=== PATIENT | male | born 1995 | race Caucasian/White ===

== ENCOUNTER 2016-07-02 19:53 | Emergency (ER) | payer OTHER ==
[2016-07-02] MEDS ORDERED: NS 0.9% 1000 ML* 1,000 ML IV ONE (22:37)
--- NOTE | 2016-07-02 22:54 | ED ---
Martín Lal Billy, scribed for Jim Vivar MD on 07/02/16 at 2236 . GI/ HPI - HPI Summary HPI Summary: Patient is a 21 year-old male coming to [facility] with a complaint of decreased appetite for the last 3 days. He decided to come to the ED today after he had 2x episodes of N/V, started at 1400 today. He also reports feeling generally weak. Nothing has made his symptoms better or worse. He states that there is no known reason for his loss of appetite. - History of Current Complaint Chief Complaint: EDHeadache Time Seen by Provider: 07/02/16 22:33 Stated Complaint: VOMITING/HEADACHE Hx Obtained From: Patient Onset/Duration: Started Days Ago, Still Present Timing: Constant Severity: Moderate Current Severity: Moderate Associated Signs and Symptoms: Positive: Weakness, Nausea, Vomiting Aggravating Factor(s): Nothing Alleviating Factor(s): Nothing - Allergy/Home Medications Allergies/Adverse Reactions: Allergies Allergy/AdvReac Type Severity Reaction Status Date / Time No Known Allergies Allergy Verified 08/04/14 19:42 PMH/Surg Hx/FS Hx/Imm Hx Endocrine/Hematology History: Denies: Hx Diabetes Cardiovascular History: Denies: Hx Hypertension Respiratory History: Denies: Hx Asthma Infectious Disease History: No Infectious Disease History: Denies: Traveled Outside the [place] in Last 30 Days - Family History Known Family History: Negative: Cardiac Disease, Hypertension, Diabetes - Social History Alcohol Use: None Substance Use Type: Reports: None Smoking Status (MU): Never Smoked Tobacco Review of Systems Positive: Vomiting, Nausea, Other - loss of appetite Positive: Weakness All Other Systems Reviewed And Are Negative: Yes Physical Exam Triage Information Reviewed: Yes Vital Signs On Initial Exam: Initial Vitals Temp Pulse Resp BP Pulse Ox 97.6 F 104 16 116/70 100 07/02/16 19:55 07/02/16 19:55 07/02/16 19:55 07/02/16 19:55 07/02/16 19:55 Vital Signs Reviewed: Yes Appearance: Positive: Well-Appearing, No Pain Distress Skin: Positive: Warm, Dry Head/Face: Positive: Normal Head/Face Inspection ENT: Positive: Hearing grossly normal, Pharynx normal Neck: Positive: Supple Respiratory/Lung Sounds: Positive: Clear to Auscultation, Breath Sounds Present Cardiovascular: Positive: RRR Abdomen Description: Positive: Nontender, No Organomegaly, Soft Bowel Sounds: Positive: Present Musculoskeletal: Positive: Strength/ROM Intact Neurological: Positive: Sensory/Motor Intact, Alert, Oriented to Person Place, Time Diagnostics - Vital Signs Vital Signs Temp Pulse Resp BP Pulse Ox 07/02/16 21:31 99.9 F 91 16 122/73 99 07/02/16 19:55 97.6 F 104 16 116/70 100 - Laboratory Result Diagrams: 07/02/16 22:40 07/02/16 22:40 Lab Statement: Any lab studies that have been ordered have been reviewed, and results considered in the medical decision making process. GIGU Course/Dx - Diagnoses Provider Diagnoses: Dehydration Discharge - Discharge Plan Condition: Stable Disposition: HOME Patient Education Materials: Dehydration (ED) Referrals: [facility] @ [Outside] The documentation as recorded by the Martín maddox Billy accurately reflects the service I personally performed and the decisions made by me, Jim Vivar MD.
[2016-07-02 22:58] LABS: Hematocrit 48 % (42-52); Hemoglobin 16.1 g/dl (14.0-18.0); Mean Corpuscular HGB Conc 34 g/dl (31-36); Mean Corpuscular Hemoglobin 30 pg (27-31); Mean Corpuscular Volume 89 fL (80-94); Mean Platelet Volume 10 um3 (7.4-10.4); Red Blood Count 5.38 10^6/ul (4.0-5.4); Red Cell Distribution Width 13 % (10.5-15); White Blood Count 14.7 10^3/ul (3.5-10.8)
[2016-07-02 23:10] LABS: Add Diff/Slide Review? Slide Review Added; Comments Flag Yes
[2016-07-02 23:12] LABS: Albumin 5.2 g/dL (3.2-5.2); BUN/Creatinine Ratio 16.9 (8-20); Calcium 10.3 mg/dL (8.6-10.3); EGFR African American 138.8 (>60); EGFR Non-African American 107.9 (>60); Globulin 3.1 g/dL (2-4); Potassium 3.4 mmol/L (3.5-5.0); Total Bilirubin 2.2 mg/dL (0.2-1.0); Total Protein 8.3 g/dL (6.4-8.9)
[2016-07-02] MEDS ORDERED: Acetaminophen TAB* 325 MG PO ONE (23:14)
[2016-07-02] MEDS ORDERED: Ketorolac INJ* 30 MG/ML 1 ML VIAL IV PUSH ONE (23:33)
[2016-07-03 01:53] VITALS: BP 113/58
== END 2016-07-03 01:52 | disposition home or self-care (01) ==
LOC: ED 19:53
DX: E86.0 Dehydration (principal); R11.2 Nausea with vomiting, unspecified; R53.1 Weakness
CPT/HCPCS: 36415; 80053; 85025; 96374; 99283; A9270-GY; J1885